=== PATIENT | female | born 1980 | race Two or more races ===

== ENCOUNTER → 2023-10-01 | Outpatient (REF) | payer MEDICAID, OTHER | LOC: M SMT 16:37 | PROVIDERS: ATTEND Nurse Practitioner Family | DX: N39.0 Urinary tract infection, site not specified (principal) ==

== ENCOUNTER → 2023-10-22 | Outpatient (CLI) | payer OTHER, MEDICAID ==
[2023-10-22 14:12] LABS: CHOLESTEROL RISK RATIO 3.57 (<5); HDL CHOLESTEROL 47.6 MG/DL (>40); LDL CHOLESTEROL 102.6 MG/DL (<100); NON-HDL-C 122.4 MG/DL
== END ==
LOC: M PLALAB 11:01
PROVIDERS: ATTEND Psychiatry & Neurology Psychiatry
DX: F31.9 Bipolar disorder, unspecified (principal)

== ENCOUNTER 2023-11-28 19:53 | Emergency (ER) | payer OTHER, MEDICAID ==
[~2023-11-28] VITALS: Ht 154.9 cm; Wt 90.6 kg
[2023-11-28] MEDS: PROMETHAZINE 25MG/ML 1ML VIAL IM ONE (20:48)
[2023-11-28 21:04] LABS: AMPHETAMINES LEVEL URINE NEGATIVE (NEGATIVE); BARBITURATES URINE NEGATIVE (NEGATIVE); BENZODIAZEPINES URINE NEGATIVE (NEGATIVE); COCAINE METABOLITE URINE NEGATIVE (NEGATIVE); METHADONE URINE NEGATIVE (NEGATIVE); OPIATES URINE NEGATIVE (NEGATIVE); PHENCYCLIDINE URINE NEGATIVE (NEGATIVE)
[2023-11-28 21:13] LABS: CANNABINOIDS URINE POSITIVE (NEGATIVE)
[2023-11-28 22:01] LABS: BASO % 0.2 % (0.0-1.0); HEMATOCRIT 43.1 % (36.0-47.0); HEMOGLOBIN 14.6 g/dl (12.0-15.5); LYMPH # 0.9 10^3/uL (1.5-5.0); LYMPH % 6.7 % (24.0-44.0); MEAN CORPUSCULAR HEMOGLOBIN 28.7 pg (27.0-33.0); MEAN CORPUSCULAR HGB CONC 33.9 g/dl (32.0-36.5); MEAN CORPUSCULAR VOLUME 84.7 fl (80.0-96.0); MONO # 0.4 10^3/uL (0.0-0.8); MONO % 3.1 % (2.0-8.0); NEUTROPHILS % 89.9 % (36.0-66.0); PLATELET COUNT, AUTOMATED 262 10^3/uL (150-450); RED BLOOD COUNT 5.09 10^6/uL (4.00-5.40); WHITE BLOOD COUNT 13.4 10^3/uL (4.0-10.0)
[2023-11-28 22:23] LABS: ETHYL ALCOHOL (ETHANOL) < 0.003 % (0.000-0.010)
[2023-11-28 22:24] LABS: SALICYLATE LEVEL < 3.0 MG/DL (<30)
[2023-11-28 22:26] LABS: THYROID STIMULATING HORMONE 1.349 uIU/ML (0.55-4.78)
[2023-11-28 22:33] LABS: ALBUMIN 5.1 G/DL (3.2-5.2); ALKALINE PHOSPHATASE 71 U/L (46-116); ALT/SGPT 44 U/L (7.0-40); AST/SGOT 31 U/L (<34); BILIRUBIN,DIRECT 0.2 MG/DL (<0.4); BILIRUBIN,TOTAL 0.8 MG/DL (0.3-1.2); BLOOD UREA NITROGEN 6 MG/DL (9-23); CARBON DIOXIDE LEVEL 18 MMOL/L (20-31); CHLORIDE LEVEL 100 MMOL/L (98-107); CREATININE FOR GFR 0.47 MG/DL (0.55-1.30); GLOMERULAR FILTRATION RATE > 60.0 (>58); GLUCOSE, FASTING 281 MG/DL (60-100); SODIUM LEVEL 136 MMOL/L (136-145)
[2023-11-28 22:34] LABS: ABG BASE EXCESS 0.3 (-2.0-2.0); ABG HCO3 22.8 MMOL/L (22.0-26.0); ABG PARTIAL PRESSURE CO2 31.3 mmHg (35.0-45.0); ABG STANDARD HCO3 24.7 MMOL/L. (22.0-26.0); ABG TOTAL CO2 23.8 MMOL/L (22.0-29.0); ABG pH (ARTERIAL) 7.481 UNITS (7.350-7.450)
[2023-11-28 22:42] LABS: HCG, SERUM QUALITATIVE NEGATIVE (NEGATIVE)
[2023-11-28 22:57] VITALS: BP 201/91
[2023-11-28] MEDS: LOSARTAN 50MG TABLET PO ONE (22:57)
[2023-11-28] MEDS: NS 1,000 ML IV ONE (22:57)
[2023-11-29] MEDS ORDERED: METF-839 PO (00:48)
[2023-11-29] MEDS ORDERED: LOSA100T46 PO (00:48)
[2023-11-29] MEDS ORDERED: CHLO125TA PO (00:48)
[2023-11-29] MEDS ORDERED: ONDA4TAB6 PO (00:48)
[2023-11-29 01:30] VITALS: BP 180/94; TEMP 98.2; O2SAT 99
== END 2023-11-29 01:30 | disposition home or self-care (01) ==
LOC: M ED 19:53
DX: K52.9 Noninfective gastroenteritis and colitis, unspecified (principal); I10 Essential (primary) hypertension; E11.9 Type 2 diabetes mellitus without complications; F32.A Depression, unspecified; E66.9 Obesity, unspecified; Z91.148 Patient's other noncompliance with medication regimen for other reason; Z79.811 Long term (current) use of aromatase inhibitors; Z79.4 Long term (current) use of insulin; Z79.899 Other long term (current) drug therapy
CPT/HCPCS: 36415; 36600; 80048; 80076; 80143; 80307; 81001; 82010; 82077; 82803; 84443; 84703; 85025; 87486; 87581; 87633; 87798; 96360; 96361; 96372; 99284; J2550

== ENCOUNTER 2023-12-01 03:48 | Emergency (ER) | payer MEDICAID, OTHER ==
[~2023-12-01] VITALS: Ht 154.9 cm; Wt 100.0 kg
[~2023-12-01 03:48] MED LIST: CHLO125TA PO; LOSA100T46 PO; METF-839 PO; ONDA4TAB6 PO
[2023-12-01] MEDS: ONDANSETRON 4MG ORAL DISINTEGRATING TAB PO ONE (05:13)
[2023-12-01] MEDS: METOCLOPRAMIDE INJ 10MG/2ML VIAL IV ONE (07:36)
[2023-12-01] MEDS: FAMOTIDINE 20MG/2ML VIAL IVP ONE (07:36)
[2023-12-01] MEDS: KETOROLAC 30 MG/ML 1ML VIAL IV ONE (07:36)
[2023-12-01 07:55] VITALS: BP 216/100
[2023-12-01] MEDS: hydrALAZINE 20MG/ML 1ML VIAL IV STA (07:55)
[2023-12-01 07:58] LABS: BASO % 0.3 % (0.0-1.0); EOS % 0.1 % (0.0-3.0); HEMATOCRIT 43.1 % (36.0-47.0); HEMOGLOBIN 14.9 g/dl (12.0-15.5); LYMPH # 1.9 10^3/uL (1.5-5.0); LYMPH % 17.9 % (24.0-44.0); MEAN CORPUSCULAR HEMOGLOBIN 28.8 pg (27.0-33.0); MEAN CORPUSCULAR HGB CONC 34.6 g/dl (32.0-36.5); MEAN CORPUSCULAR VOLUME 83.4 fl (80.0-96.0); MONO # 0.8 10^3/uL (0.0-0.8); NEUTROPHILS # 7.8 10^3/uL (1.5-8.5); NEUTROPHILS % 73.4 % (36.0-66.0); RED BLOOD COUNT 5.17 10^6/uL (4.00-5.40); WHITE BLOOD COUNT 10.6 10^3/uL (4.0-10.0)
[2023-12-01 08:17] LABS: PLATELET COUNT, AUTOMATED 196 10^3/uL (150-450)
[2023-12-01 08:26] LABS: ALBUMIN 4.6 G/DL (3.2-5.2); ALKALINE PHOSPHATASE 75 U/L (46-116); ALT/SGPT 22 U/L (7.0-40); AST/SGOT 10 U/L (<34); BILIRUBIN,TOTAL 1.6 MG/DL (0.3-1.2); BLOOD UREA NITROGEN 19 MG/DL (9-23); CALCIUM LEVEL 10.8 MG/DL (8.5-10.1); CARBON DIOXIDE LEVEL 25 MMOL/L (20-31); CHLORIDE LEVEL 88 MMOL/L (98-107); GLOMERULAR FILTRATION RATE > 60.0 (>58); GLUCOSE, FASTING 343 MG/DL (60-100); POTASSIUM SERUM 3.8 MMOL/L (3.5-5.1); SODIUM LEVEL 129 MMOL/L (136-145); TOTAL PROTEIN 8.4 G/DL (5.7-8.2)
[2023-12-01 11:26] LABS: VENOUS BASE EXCESS 3.9 (-2.0-2.0); VENOUS HCO3 25.5 MMOL/L (23.0-27.0); VENOUS O2 SATURATION 99.4 % (60.0-80.0); VENOUS PARTIAL PRESSURE CO2 30.7 mmHg (38.0-50.0); VENOUS PARTIAL PRESSURE O2 245.8 mmHg (30.0-50.0); VENOUS PH 7.538 UNITS (7.330-7.430); VENOUS TOTAL CO2 26.5 MMOL/L (24.0-28.0)
[2023-12-01 11:32] LABS: HEMOGLOBIN A1c 7.9 % (4.0-6.0)
[2023-12-01] MEDS: NS 1,000 ML IV ONE (11:44)
[2023-12-01] MEDS: HALOPERIDOL LACTATE 5MG/ML VIAL IV STA (11:51)
[2023-12-01] MEDS ORDERED: REGL10TA6 PO (12:12)
[2023-12-01] MEDS ORDERED: METF500T13 PO (12:12)
[2023-12-01] MEDS ORDERED: ONDA4TAB6 PO (12:12)
[2023-12-01 13:01] VITALS: BP 179/99; O2SAT 97
[2023-12-01 13:26] VITALS: TEMP 98.7
== END 2023-12-01 13:37 | disposition home or self-care (01) ==
LOC: M ED 03:48
DX: F12.10 Cannabis abuse, uncomplicated (principal); K21.9 Gastro-esophageal reflux disease without esophagitis; F17.290 Nicotine dependence, other tobacco product, uncomplicated
CPT/HCPCS: 36415; 74176; 80053; 82803; 83036; 85025; 86140; 93005; 96361; 96374; 96375; 99285; J0360; J1630; J1885; J2765; S0028

== ENCOUNTER → 2024-03-01 | Outpatient (CLI) | payer OTHER, MEDICAID ==
[~2024-03-01] MED LIST changes: +METF500T13 PO; +ONDA-282 PO; -ONDA4TAB6 PO; +REGL10TA6 PO
[2024-03-01 15:29] LABS: BASO % 0.3 % (0.0-1.0); EOS % 0.7 % (0.0-3.0); HEMATOCRIT 34.5 % (36.0-47.0); HEMOGLOBIN 11.4 g/dl (12.0-15.5); LYMPH # 2.1 10^3/uL (1.5-5.0); LYMPH % 37.4 % (24.0-44.0); MEAN CORPUSCULAR HEMOGLOBIN 28.3 pg (27.0-33.0); MEAN CORPUSCULAR VOLUME 85.6 fl (80.0-96.0); MONO # 0.4 10^3/uL (0.0-0.8); MONO % 6.1 % (2.0-8.0); NEUTROPHILS # 3.2 10^3/uL (1.5-8.5); NEUTROPHILS % 55.3 % (36.0-66.0); PLATELET COUNT, AUTOMATED 228 10^3/uL (150-450); RED BLOOD COUNT 4.03 10^6/uL (4.00-5.40); WHITE BLOOD COUNT 5.7 10^3/uL (4.0-10.0)
[2024-03-01 15:58] LABS: CREATININE, URINE 132.5 MG/DL
[2024-03-01 15:59] LABS: MALB URINE SIEMENS < 3.0 MG/L; MAU/CREAT RATIO 2.2 MCG/MG (0.0-30.0)
[2024-03-01 16:02] LABS: THYROID STIMULATING HORMONE 1.088 uIU/ML (0.55-4.78)
[2024-03-01 16:03] LABS: FERRITIN 27.5 NG/ML (7.3-270.7); FREE T4 1.23 NG/DL (0.89-1.76); IRON (FE) 47 UG/DL (50-170)
[2024-03-01 16:04] LABS: PERCENT SATURATION 12.9 % (13.2-45.0); TOTAL IRON BINDING CAPACITY 364 UG/DL (250-425)
[2024-03-01 16:14] LABS: HEMOGLOBIN A1c 9.8 % (4.0-6.0); HEPATITIS B SURFACE ANTIGEN NEGATIVE (NEGATIVE)
[2024-03-01 16:28] LABS: HIV 1&2 SCREEN NEGATIVE (NEGATIVE)
[2024-03-01 16:35] LABS: HEPATITIS B CORE ANTIBODY IGM NEGATIVE (NEGATIVE); HEPATITIS C VIRUS ABY INDEX < 0.02 INDEX (<0.8)
[2024-03-01 16:40] LABS: ALBUMIN 3.7 G/DL (3.2-5.2); ALKALINE PHOSPHATASE 54 U/L (46-116); ALT/SGPT 16 U/L (7.0-40); AST/SGOT 9 U/L (<34); BILIRUBIN,TOTAL 0.4 MG/DL (0.3-1.2); BLOOD UREA NITROGEN < 5 MG/DL (9-23); CALCIUM LEVEL 9.4 MG/DL (8.5-10.1); CARBON DIOXIDE LEVEL 25 MMOL/L (20-31); CHLORIDE LEVEL 103 MMOL/L (98-107); CHOLESTEROL LEVEL 193 MG/DL (<200); CHOLESTEROL RISK RATIO 3.69 (<5); CREATININE FOR GFR 0.49 MG/DL (0.55-1.30); GLOMERULAR FILTRATION RATE > 60.0 (>58); GLUCOSE, FASTING 185 MG/DL (60-100); HDL CHOLESTEROL 52.3 MG/DL (>40); LDL CHOLESTEROL 120.3 MG/DL (<100); NON-HDL-C 140.7 MG/DL; POTASSIUM SERUM 3.8 MMOL/L (3.5-5.1); SODIUM LEVEL 134 MMOL/L (136-145); TOTAL PROTEIN 6.9 G/DL (5.7-8.2); TRIGLYCERIDES LEVEL 102 MG/DL (<150)
[2024-03-01 17:11] LABS: GC DNA AMPLIFICATION NEGATIVE (NEGATIVE)
== END ==
LOC: M PLALAB 13:37
PROVIDERS: ATTEND Student in an Organized Health Care Education/Training Program
DX: Z20.2 Contact with and (suspected) exposure to infections with a predominantly sexual mode of transmission (principal); Z76.89 Persons encountering health services in other specified circumstances; E55.9 Vitamin D deficiency, unspecified; E61.1 Iron deficiency; N76.0 Acute vaginitis

== ENCOUNTER → 2024-03-09 | Outpatient (REF) | LOC: M PLAIMG 11:44 | PROVIDERS: ATTEND Internal Medicine | DX: R52 Pain, unspecified (principal); M76.891 Other specified enthesopathies of right lower limb, excluding foot ==

== ENCOUNTER → 2024-09-25 | Outpatient (CLI) | payer MEDICAID, OTHER ==
[2024-09-25 15:18] LABS: BASO # 0.1 10^3/uL (0.0-0.2); EOS # 0.1 10^3/uL (0.0-0.5); HEMATOCRIT 35.9 % (36.0-47.0); HEMOGLOBIN 11.5 g/dl (12.0-15.5); LYMPH # 2.6 10^3/uL (1.5-5.0); LYMPH % 52.8 % (24.0-44.0); MEAN CORPUSCULAR HEMOGLOBIN 27.4 pg (27.0-33.0); MEAN CORPUSCULAR VOLUME 85.7 fl (80.0-96.0); MONO # 0.3 10^3/uL (0.0-0.8); MONO % 6.2 % (2.0-8.0); NEUTROPHILS # 1.9 10^3/uL (1.5-8.5); NEUTROPHILS % 38.8 % (36.0-66.0); PLATELET COUNT, AUTOMATED 192 10^3/uL (150-450); RED BLOOD COUNT 4.19 10^6/uL (4.00-5.40); WHITE BLOOD COUNT 4.9 10^3/uL (4.0-10.0)
[2024-09-25 15:41] LABS: ALKALINE PHOSPHATASE 56 U/L (35-104); ALT/SGPT 85 U/L (7.0-40); AST/SGOT 90 U/L (<34); BILIRUBIN,TOTAL 0.3 MG/DL (0.3-1.2); BLOOD UREA NITROGEN 10 MG/DL (9-23); CALCIUM LEVEL 9.1 MG/DL (8.5-10.1); CARBON DIOXIDE LEVEL 23 MMOL/L (20-31); CHLORIDE LEVEL 105 MMOL/L (98-107); CHOLESTEROL LEVEL 143 MG/DL (<200); CHOLESTEROL RISK RATIO 3.11 (<5); CREATININE FOR GFR 0.57 MG/DL (0.55-1.30); GLOMERULAR FILTRATION RATE > 60.0 (>58); GLUCOSE, FASTING 142 MG/DL (60-100); HDL CHOLESTEROL 45.9 MG/DL (>40); LDL CHOLESTEROL 87.7 MG/DL (<100); NON-HDL-C 97.1 MG/DL; POTASSIUM SERUM 4.4 MMOL/L (3.5-5.1); SODIUM LEVEL 138 MMOL/L (136-145); TOTAL PROTEIN 7.1 G/DL (5.7-8.2); TRIGLYCERIDES LEVEL 47 MG/DL (<150)
[2024-09-25 15:45] LABS: MAU/CREAT RATIO 6.1 MCG/MG (0.0-30.0)
[2024-09-25 16:20] LABS: HEMOGLOBIN A1c 7.6 % (4.0-6.0)
== END ==
LOC: M PLALAB 12:27
PROVIDERS: ATTEND Student in an Organized Health Care Education/Training Program
DX: Z00.00 Encounter for general adult medical examination without abnormal findings (principal); E11.9 Type 2 diabetes mellitus without complications; E55.9 Vitamin D deficiency, unspecified; I10 Essential (primary) hypertension

== ENCOUNTER 2025-02-22 09:30 | Outpatient (CLI) | payer OTHER ==
[~2025-02-22] VITALS: Ht 154.9 cm; Wt 95.9 kg
[~2025-02-22 09:30] MED LIST changes: +ALBUTEROL SULFATE 2.5 MG/0.5 ML INH CONCENTRATE NEB SOLN INH PRN; +EPINEPHrine INJ 1 MG/ML 1ML AMP IM PRN; +diphenhydrAMINE 50 MG/ML VIAL IV PRN
[2025-02-22 09:35] VITALS: BP 162/82; O2SAT 100
[2025-02-22] MEDS: IRON SUCROSE 500 MG in NS 250 ML OVER 4 HRS IV ONE (10:15)
[2025-02-22 12:00] VITALS: BP 153/81; O2SAT 100
[2025-02-22 13:00] VITALS: BP 161/81; O2SAT 100
[2025-02-22 14:00] VITALS: BP 159/84; O2SAT 98
[2025-02-22 15:10] VITALS: BP 168/88; O2SAT 98
== END 2025-02-22 15:10 | disposition home or self-care (01) ==
LOC: M INFU 09:30
PROVIDERS: ATTEND Student in an Organized Health Care Education/Training Program
DX: D50.9 Iron deficiency anemia, unspecified (principal)
CPT/HCPCS: 96365; 96366; J1756

== ENCOUNTER 2025-03-08 10:27 | Outpatient (CLI) | payer OTHER ==
[~2025-03-08] VITALS: Ht 154.9 cm; Wt 86.6 kg
[2025-03-08 10:35] VITALS: BP 127/60; O2SAT 99
[2025-03-08] MEDS: IRON SUCROSE 500 MG in NS 250 ML OVER 4 HRS IV ONE (11:24)
[2025-03-08 12:30] VITALS: BP 131/81; O2SAT 100
[2025-03-08 13:30] VITALS: BP 129/70; O2SAT 100
[2025-03-08 14:30] VITALS: BP 134/76; O2SAT 100
[2025-03-08 15:30] VITALS: BP 156/76; O2SAT 99
== END 2025-03-08 10:35 ==
LOC: M INFU 10:27
PROVIDERS: ATTEND Student in an Organized Health Care Education/Training Program
DX: D50.9 Iron deficiency anemia, unspecified (principal)
CPT/HCPCS: 96365; 96366; J1756

== ENCOUNTER → 2025-04-04 | Outpatient (REF) | payer MEDICAID ==
[~2025-04-04] MED LIST changes: -ALBUTEROL SULFATE 2.5 MG/0.5 ML INH CONCENTRATE NEB SOLN INH PRN; -EPINEPHrine INJ 1 MG/ML 1ML AMP IM PRN; -diphenhydrAMINE 50 MG/ML VIAL IV PRN
[2025-04-04 20:31] LABS: AMORPHOUS SEDIMENT LARGE (NEGATIVE); APPEARANCE, URINE TURBID (CLEAR); BACTERIA, URINE AUTO NEGATIVE (NEGATIVE); BILIRUBIN, URINE AUTO NEGATIVE (NEGATIVE); BLOOD, URINE BLOOD NEGATIVE (NEGATIVE); GLUCOSE, URINE (UA) AUTO NEGATIVE (NEGATIVE); KETONE, URINE AUTO NEGATIVE (NEGATIVE); LEUKOCYTE ESTERASE, URINE AUTO NEGATIVE (NEGATIVE); MUCUS, URINE LARGE (NEGATIVE); NITRITE, URINE AUTO NEGATIVE (NEGATIVE); PROTEIN, URINE AUTO NEGATIVE (NEGATIVE); RBC, URINE AUTO 0 /HPF (0-3); SPECIFIC GRAVITY URINE AUTO 1.027 (1.002-1.035); SQUAMOUS EPITHELIAL CELL UR AU 3 /HPF (0-6); UROBILINOGEN, URINE AUTO 2.0 mg/dL (0.0-2.0); WBC, URINE AUTO 0 /HPF (0-3)
== END ==
LOC: M SFHCPLAZ 11:14
PROVIDERS: ATTEND Family Medicine
DX: Z53.9 Procedure and treatment not carried out, unspecified reason (principal); E11.9 Type 2 diabetes mellitus without complications

== ENCOUNTER → 2025-04-18 | Outpatient (REF) | payer MEDICAID | LOC: M SFHCPLAZ 16:28 | PROVIDERS: ATTEND Family Medicine | DX: Z53.9 Procedure and treatment not carried out, unspecified reason (principal) ==

== ENCOUNTER 2025-05-16 10:29 | Outpatient (RCR) | payer OTHER | END 2025-06-10 | LOC: M OUTALCOH 10:29 | PROVIDERS: ATTEND Psychiatry & Neurology Psychiatry | DX: F10.10 Alcohol abuse, uncomplicated (principal); F12.10 Cannabis abuse, uncomplicated ==

== ENCOUNTER → 2025-05-16 | Outpatient (CLI) | payer OTHER | LOC: M OUTALCOH 07:52 | PROVIDERS: ATTEND Psychiatry & Neurology Psychiatry | DX: F10.10 Alcohol abuse, uncomplicated (principal); F12.10 Cannabis abuse, uncomplicated ==

== ENCOUNTER → 2025-05-31 | Outpatient (REF) | payer MEDICAID ==
[2025-05-31 15:29] LABS: APPEARANCE, URINE CLEAR (CLEAR); BACTERIA, URINE AUTO NEGATIVE (NEGATIVE); BILIRUBIN, URINE AUTO NEGATIVE (NEGATIVE); BLOOD, URINE BLOOD NEGATIVE (NEGATIVE); GLUCOSE, URINE (UA) AUTO NEGATIVE (NEGATIVE); KETONE, URINE AUTO TRACE mg/dL (NEGATIVE); LEUKOCYTE ESTERASE, URINE AUTO NEGATIVE (NEGATIVE); MUCUS, URINE SMALL (NEGATIVE); NITRITE, URINE AUTO NEGATIVE (NEGATIVE); PROTEIN, URINE AUTO NEGATIVE (NEGATIVE); RBC, URINE AUTO 1 /HPF (0-3); SPECIFIC GRAVITY URINE AUTO 1.021 (1.002-1.035); SQUAMOUS EPITHELIAL CELL UR AU 3 /HPF (0-6); UROBILINOGEN, URINE AUTO 0.2 mg/dL (0.0-2.0); WBC, URINE AUTO 1 /HPF (0-3)
== END ==
LOC: M SFHCPLAZ 13:33
PROVIDERS: ATTEND Family Medicine
DX: R39.9 Unspecified symptoms and signs involving the genitourinary system (principal)

== ENCOUNTER → 2025-05-31 | Outpatient (CLI) | payer MEDICAID | LOC: M PLAIMG 14:05 | PROVIDERS: ATTEND Family Medicine | DX: M25.511 Pain in right shoulder (principal) ==

== ENCOUNTER 2025-06-04 11:12 | Outpatient (RCR) | payer OTHER | END 2025-06-10 | LOC: M OUTALCOH 11:12 | PROVIDERS: ATTEND Psychiatry & Neurology Psychiatry | DX: F10.10 Alcohol abuse, uncomplicated (principal); F12.10 Cannabis abuse, uncomplicated ==